=== PATIENT | female | born 1985 | race Two or more races ===

== ENCOUNTER 2019-07-13 10:12 | Outpatient (CLI) | payer OTHER | END 2019-07-13 11:11 | disposition home or self-care (01) | LOC: NST 10:12 | PROVIDERS: ATTEND Obstetrics & Gynecology Maternal & Fetal Medicine | DX: Z34.83 Encounter for supervision of other normal pregnancy, third trimester (principal) ==

== ENCOUNTER 2019-08-04 09:15 | Inpatient (IN) | payer OTHER ==
[~2019-08-04] VITALS: Ht 157.5 cm; Wt 3.6 kg
[2019-08-23] MEDS ORDERED: PRENATAL PLUS1 EAC1 PO (09:03)
== END 2019-08-26 11:04 | DRG 786 ==
LOC: OB/GYN 08-23 08:23 → LDR 08-23 08:23 → OB/GYN 08-23 09:30 → LDR 08-23 10:50 → OB/GYN 08-23 11:00
PROVIDERS: Obstetrics & Gynecology Maternal & Fetal Medicine; ADMIT Obstetrics & Gynecology; ATTEND Obstetrics & Gynecology
PROC: 8E0ZXY6 Isolation (ICD-10-PCS; 2019-08-23)
PROC: 0UCC7ZZ Extirpation of Matter from Cervix, Via Natural or Artificial Opening (ICD-10-PCS; 2019-08-23)
PROC: 4A1HXCZ Monitoring of Products of Conception, Cardiac Rate, External Approach (ICD-10-PCS; 2019-08-23)
PROC: 10D00Z1 Extraction of Products of Conception, Low, Open Approach (ICD-10-PCS; principal; 2019-08-23 09:30)
DX: O82 Encounter for cesarean delivery without indication (principal); U07.1 COVID-19; O34.211 Maternal care for low transverse scar from previous cesarean delivery; O26.893 Other specified pregnancy related conditions, third trimester; Z22.330 Carrier of Group B streptococcus; Z3A.39 39 weeks gestation of pregnancy; Z37.0 Single live birth